=== PATIENT | female | born 1950 | race Caucasian/White ===

== ENCOUNTER 2017-02-15 09:35 | Day surgery (SDC) | payer OTHER ==
[~2017-02-15] VITALS: Ht 154.9 cm; Wt 93.4 kg
[~2017-02-15 09:35] MED LIST: /AUGM875TA OR; /MOM400 PO; ACTO30TA OR; ACTO30TA6 PO; ASPI1TAB PO; ASPI325T OR; ASPI81TA7 PO; AUGM875T27 PO; BASA100I SC; BENA25TA4 PO; BISO10TA3 PO; BISOPROLOL/HCTZ PO; CALCTAB7 PO; CEFT2ADD IV; COLA50CA3 PO; CYAN1000 IJ; DIOV160T5 OR; GLIM1TAB OR; JANU100T PO; JANUVIA PO; LEVO125T OR; LEVO125T4 PO; LOSA50TA20 PO; MAGN400T5 PO; METF-414 PO; OXYIR PO; PERC5TAB8 OR; PERC7.5T8 OR; PERCOCET PO; SIMV20TA2 OR; SING10TA31 OR; TYLE325T5 PO; VICTOZA SC; VITA100L PO; VITA500079 PO; [UNRECOGNIZED DRUG - CODE] PO; nystatin powder TOP; vitaminB12 OR
[2017-02-15] MEDS ORDERED: LR 500 ML IV ONE (09:45)
[2017-02-15] MEDS ORDERED: PROPOFOL 200 MG/20 ML VIAL As Ordered ONE (10:38)
[2017-02-15] MEDS ORDERED: ONDANSETRON 4MG/2ML VIAL (J2405) As Ordered ONE (10:38)
[2017-02-15] MEDS ORDERED: LIDOCAINE 2% INJ 100 MG/5 ML SDV (FOR ANES.) As Ordered ONE (10:38)
[2017-02-15] MEDS ORDERED: BUPIVACAINE HCL 0.5% 10 ML VIAL As Ordered ONE (10:39)
[2017-02-15] MEDS ORDERED: fentaNYL 100 MCG/2 ML INJECTION (J3010) As Ordered ONE (10:39)
[2017-02-15] MEDS ORDERED: LIDOCAINE 1% MDV 20ML VIAL As Ordered ONE (10:39)
[2017-02-15] MEDS ORDERED: MIDAZOLAM INJ 2 MG/2 ML VIAL (J2250) As Ordered ONE (10:39)
[2017-02-15] MEDS ORDERED: dexameTHASONE 4 MG/ML 1ML VIAL (J1100) As Ordered ONE (10:40)
--- NOTE | 2017-02-15 13:12 | RO ---
DATE OF SURGERY: 02/15/2017 PREOPERATIVE DIAGNOSES: Left foot bunion, hallux valgus. POSTOPERATIVE DIAGNOSES: Left foot bunion, hallux valgus. PROCEDURE: Left foot bunionectomy with 1st metatarsal osteotomy. SURGEON: Sravan Alvarez DPM RESIDENTIAL SUPERVISOR: None ANESTHESIA: Monitored anesthesia care with preoperative injection of 20 mL of 1:1 mixture of 1% lidocaine plain and 0.5% Marcaine plain. ESTIMATED BLOOD LOSS: Minimal. MATERIALS: Arthrex 3.5 headless screw, #3-0 and #4-0 Vicryl and #4-0 nylon. INJECTABLES: 1 mL Decadron. COMPLICATIONS: None. CONDITION: Stable. Pricila Roberts is a 66-year-old female who presents to [facility] with complaints of painful bunion. She presented today for surgical correction. The patient side and site were identified and marked in the preoperative holding area. Consent was reviewed and obtained. All risks, complications, and alternatives of the procedure were explained to the patient in detail, and all questions were answered. DESCRIPTION OF PROCEDURE: The patient was brought to the operating room and placed on the operating table in supine position. Monitored anesthesia care was delivered by the anesthesia team. A preoperative injection of 20 mL of 1:1 mixture of 1% lidocaine plain and 0.5% Marcaine plain were injected to the left foot. The left foot was prepped and draped in normal sterile fashion. The patient received Ancef preoperatively. Tourniquet was applied to the ankle and inflated to 225 mmHg. A dorsomedial incision was drawn and carried through with a #15 blade. Dissection was carried down until the metatarsophalangeal joint capsule was identified. Bovie used to maintain hemostasis. A T capsulotomy was performed, exposing the metatarsal head. Following this, a lateral release was performed, releasing the adductor tendon, lateral capsule, and the suspensory ligament. McGlamry elevator was used to free the plantar structures. Next, a sagittal saw was used to resect the prominent medial eminence from the bone, and an osteotomy was then performed in the metatarsal, transposing it laterally. This was fixated with an Arthrex 3.5 headless screw. The remaining bone ledge was resected with sagittal saw and smoothed with a rasp, and the site was irrigated with normal saline. A small wedge of capsule was removed from the medial capsule, and capsular repair was performed with #3-0 Vicryl. Subcutaneous closure with #4-0 Vicryl and skin closure with #4-0 nylon. 1 mL Decadron was injected. Sterile dressing was applied. Tourniquet was deflated. The patient was brought to postanesthesia care unit (PACU) with vital signs stable and neurovascular status intact. She will be weightbearing with crutches or a walker and postoperative shoe. She will followup in the office in 2 days.
[2017-02-15 13:35] VITALS: BP 150/86
== END 2017-02-15 13:35 | disposition home or self-care (01) ==
LOC: M SDC 09:35
PROVIDERS: ATTEND Podiatrist Foot & Ankle Surgery
DX: M20.12 Hallux valgus (acquired), left foot (principal); E10.51 Type 1 diabetes mellitus with diabetic peripheral angiopathy without gangrene; J44.9 Chronic obstructive pulmonary disease, unspecified; I25.10 Atherosclerotic heart disease of native coronary artery without angina pectoris; R00.2 Palpitations; E03.9 Hypothyroidism, unspecified; R07.9 Chest pain, unspecified; E66.9 Obesity, unspecified; E78.5 Hyperlipidemia, unspecified; I10 Essential (primary) hypertension; R06.02 Shortness of breath; K57.32 Diverticulitis of large intestine without perforation or abscess without bleeding; M12.9 Arthropathy, unspecified; M51.9 Unspecified thoracic, thoracolumbar and lumbosacral intervertebral disc disorder; G47.33 Obstructive sleep apnea (adult) (pediatric); Z88.1 Allergy status to other antibiotic agents; Z88.2 Allergy status to sulfonamides; Z88.5 Allergy status to narcotic agent; Z91.040 Latex allergy status; Z79.899 Other long term (current) drug therapy; Z79.82 Long term (current) use of aspirin; Z96.1 Presence of intraocular lens; Z90.710 Acquired absence of both cervix and uterus
CPT/HCPCS: 28296; 88300; 97116; C1776

== ENCOUNTER → 2017-09-07 | Outpatient (CLI) | payer MEDICARE | LOC: M RAD 08:39 | DX: M25.512 Pain in left shoulder (principal); M79.622 Pain in left upper arm ==

== ENCOUNTER → 2018-06-30 | Outpatient (CLI) | payer MEDICARE ==
--- NOTE | 2018-07-02 09:08 | REP ---
MRI LUMBAR SPINE WITHOUT CONTRAST: HISTORY: Lumbar radiculopathy. Recent episodes of bilateral leg numbness, more on the left. Chronic low back pain. Comparison MRI study is from September 04, 2014. TECHNIQUE: Sagittal and axial T1- and T2-weighted scans are acquired in the usual fashion with and without fat saturation. Sequences include spin echo, turbo spin-echo, and STIR imaging sequences. MRI FINDINGS: Small bilateral renal cortical cysts are noted. Normal caliber aorta. Lumbar vertebral body heights are preserved. There are reactive marrow changes on either side of the degenerated L5-S1 disc. Cortical and medullary bone signal intensity are otherwise normal. Conus medullaris is normal in position and appearance at the L1-2 disc level. At L5-S1, there is a grade 2-3, 16 mm, L5-S1 spondylolisthesis. Bilateral L5 spondylolysis is noted. There is advanced facet hypertrophy and osteoarthritis bilaterally at L5-S1. The spondylolisthesis has progressed, previously measured 12 mm. There is moderate central canal stenosis with mid AP dimension of the thecal sac 7.8 mm. There is severe bilateral neural foraminal narrowing at this level. At the L4-5 level, there is mild to moderate facet hypertrophy bilaterally. There is mild right-sided neural foraminal narrowing due to facet hypertrophy. This is slightly more prominent than on the prior exam. At L3-4, there is diffuse disc bulging which effaces the ventral margin of the thecal sac. Mild facet hypertrophy is noted bilaterally. No central canal stenosis or focal disc protrusion is seen. No neural foraminal narrowing is noted. L2-3, there is degenerative disc narrowing and moderate diffuse disc bulging indenting the ventral margin of the thecal sac. There is mild central canal stenosis at L2-3 due to disc bulging and developmentally short pedicles along with mild ligamentum flavum and facet hypertrophy. The disc bulging is slightly more prominent than on the 2015 prior study. At L1-2, there is mild central disc bulging. No other significant finding. IMPRESSION: The dominant abnormalities at L5-S1 where there is a grade 2-3, 16 mm, L5-S1 spondylolisthesis with associated bilateral L5 spondylolysis and central canal and bilateral neural foraminal narrowing. Right neural foraminal narrowing is also noted at L4-5. Electronically Signed by Miguel Young MD 07/02/2018 12:44 P
== END ==
LOC: M RAD 10:44
PROVIDERS: ATTEND Nurse Practitioner Family
DX: M51.16 Intervertebral disc disorders with radiculopathy, lumbar region (principal); N28.1 Cyst of kidney, acquired; M43.06 Spondylolysis, lumbar region; M48.061 Spinal stenosis, lumbar region without neurogenic claudication

== ENCOUNTER → 2023-10-30 | Outpatient (CLI) | payer MEDICARE ==
[~2023-10-30] MED LIST changes: -/MOM400 PO; -ASPI1TAB PO; +ASPI81TA26 PO; +BISO1TAB19 PO; +CALC-211 PO; -CALCTAB7 PO; +MILK10SU PO
== END ==
LOC: M PLARAD 11:51
PROVIDERS: ATTEND Internal Medicine Gastroenterology
DX: C22.9 Malignant neoplasm of liver, not specified as primary or secondary (principal)
CPT/HCPCS: 78815; A9552